=== PATIENT | female | born 1995 | race Asian ===

== ENCOUNTER 2016-11-20 16:40 | Emergency (ER) | payer OTHER ==
[2016-11-20 18:12] VITALS: BP 115/74
--- NOTE | 2016-11-20 19:24 | UC ---
Skin Complaint HPI - HPI Summary HPI Summary: 21 yo female with painful "red spot" right lateral knee x 1 week no remembered trauma no similar lesions - History of Current Complaint Chief Complaint: UCLowerExtremity Time Seen by Provider: 11/20/16 19:06 Stated Complaint: LEG PAIN, AND SORE ON LEG Hx Obtained From: Patient Hx Last Menstrual Period: 10/25/16 Onset/Duration: Gradual Onset, Lasting Weeks Timing: Constant Onset Severity: Mild Current Severity: Mild Pain Intensity: 2 Pain Scale Used: 0-10 Numeric Location: Discrete Character: Pain, Redness, Raised Aggravating: Touch Alleviating: Nothing Associated Signs & Symptoms: Positive: Negative - Allergy/Home Medications Allergies/Adverse Reactions: Allergies Allergy/AdvReac Type Severity Reaction Status Date / Time No Known Allergies Allergy Verified 11/20/16 18:03 Review of Systems Constitutional: Negative Skin: Negative Eyes: Negative ENT: Negative Respiratory: Negative Cardiovascular: Negative Gastrointestinal: Negative Genitourinary: Negative Motor: Negative Neurovascular: Negative Musculoskeletal: Negative Neurological: Negative Psychological: Negative All Other Systems Reviewed And Are Negative: Yes PMH/Surg Hx/FS Hx/Imm Hx Previously Healthy: Yes - Surgical History Surgical History: None - Family History Known Family History: Positive: Hypertension - Social History Alcohol Use: Rare Substance Use Type: None Smoking Status (MU): Never Smoked Tobacco Physical Exam Triage Information Reviewed: Yes Appearance: Well-Appearing, No Pain Distress, Well-Nourished Vital Signs: Initial Vital Signs Temp 97.3 F 11/20/16 18:04 Pulse 72 11/20/16 18:04 Resp 18 11/20/16 18:04 BP 115/74 11/20/16 18:04 Pulse Ox 100 11/20/16 18:04 Vital Signs Reviewed: Yes Eyes: Positive: Conjunctiva Clear ENT: Positive: Hearing grossly normal. Negative: Nasal congestion, Nasal drainage, Trismus, Muffled/hoarse voice Neck exam: Normal Respiratory: Positive: Lungs clear, Normal breath sounds, No respiratory distress, No accessory muscle use Cardiovascular: Positive: RRR, No Murmur. Negative: Tachycardia Musculoskeletal: Positive: ROM Intact, No Edema Neurological: Positive: Alert Psychological Exam: Normal Skin Exam: Other - see image Course/Dx - Diagnoses Provider Diagnoses: hemorrhagic blister Discharge - Discharge Plan Condition: Stable Disposition: HOME Prescriptions: Mupirocin 2% OINT* [Bactroban 2 % Oint*] 1 applic TOPICAL TID #1 tube Patient Education Materials: Blister (ED) Additional Instructions: this looks like a blood blister a culture is pending I suggest warm soapy compresses 3 x day dry then apply antibiotic oint (bactroban) return for new or worsening symptoms Images Front/Back of Body, Lg ([place]): 1 - single 1-2mm hemorhagic blister. rupture with q tip. culture obtained of serous sanguinous fluid
== END 2016-11-20 19:24 | disposition home or self-care (01) ==
LOC: UCEAST 16:40
DX: S80.221A Blister (nonthermal), right knee, initial encounter (principal); X58.XXXA Exposure to other specified factors, initial encounter; Y93.9 Activity, unspecified; Y92.9 Unspecified place or not applicable
CPT/HCPCS: 87070; 87205; 99202; G0463